=== PATIENT | female | born 1950 | race African-American/Black ===

== ENCOUNTER 2016-04-15 18:22 | Emergency (ER) | payer MEDICAID, MEDICARE ==
[~2016-04-15] VITALS: Ht 154.9 cm; Wt 90.7 kg
[2016-04-15 18:50] VITALS: BP 129/61
[2016-04-15] MEDS ORDERED: PREDNISONE 20 MG TABLET PO ONE (19:15)
[2016-04-15] MEDS ORDERED: DIPHENHYDRAMINE HCL 25 MG CAPSULE PO ONE (19:15)
[2016-04-15] MEDS ORDERED: PRED20TA PO (19:18)
--- NOTE | 2016-04-15 19:19 | PHYS DOC ---
Past Medical History Past Medical History: Diabetes-Type II, Hypertension Past Surgical History: Coronary Bypass Surgery, Hysterectomy Alcohol Use: Occasionally Drug Use: None Adult General Chief Complaint Chief Complaint: INSECT BITE HPI HPI Patient is a 65 year old female presents emergency department stating that she is here from out of town and staying at a friend's house. She states when she woke up in the middle the night she was having some itching and irritation on her right wrist and forearm. She states now she is having itching on the left forearm as well as in the back area. Patient states that she has not taken anything for the irritation. She denies any new clothing. She is sleeping in a new bed linens last in different detergent to what she uses. No one else in the home as any type or rash or discomfort. Review of Systems Review of Systems Constitutional: Denies fever or chills [] Eyes: Denies change in visual acuity, redness, or eye pain [] HENT: Denies nasal congestion or sore throat [] Respiratory: Denies cough or shortness of breath [] Cardiovascular: No additional information not addressed in HPI [] GI: Denies abdominal pain, nausea, vomiting, bloody stools or diarrhea [] : Denies dysuria or hematuria [] Musculoskeletal: Denies back pain or joint pain [] Integument: Rash bilateral arms with itching to the back Neurologic: Denies headache, focal weakness or sensory changes [] Endocrine: Denies polyuria or polydipsia [] Allergies Allergies Allergies Coded Allergies Type Severity Reaction Last Updated Verified No Known Drug Allergies 04/15/16 No Physical Exam Physical Exam Constitutional: Well developed, well nourished, no acute distress, non-toxic appearance. [] HENT: Normocephalic, atraumatic, bilateral external ears normal, oropharynx moist, no oral exudates, nose normal. [] Eyes: PERRLA, EOMI, conjunctiva normal, no discharge. [] Neck: Normal range of motion, no tenderness, supple, no stridor. [] Cardiovascular:Heart rate regular rhythm, no murmur [] Lungs & Thorax: Bilateral breath sounds clear to auscultation [] Skin: Warm, dry, no erythema. Redness and swelling was noted to right wrist area as well as redness and swelling to the left forearm. Patient does have an area on the right cheek that appears to be swollen although does not appear to be red. Back: No tenderness Extremities: No tenderness, no cyanosis, no clubbing, ROM intact, no edema. [] Neurologic: Alert and oriented X 3, normal motor function, normal sensory function, no focal deficits noted. [] Psychologic: Affect normal, judgement normal, mood normal. [] Current Patient Data Vital Signs Vital Signs Date Time Temp Pulse Resp B/P Pulse Ox O2 Delivery O2 Flow Rate FiO2 04/15/16 18:50 98.2 120 16 99 Room Air 98.2 EKG EKG [] Radiology/Procedures Radiology/Procedures [] Course & Med Decision Making Course & Med Decision Making Pertinent Labs and Imaging studies reviewed. (See chart for details) Questionable contact for dermatitis versus allergic reaction, or bites. Patient will be placed on Benadryl and steroids with recommendations to follow-up with a primary care physician next 3-5 days. Also recommended patient to keep the skin clean dry and cool. Since symptoms to return back to emergency department as been provided. Patient agrees with discharge instructions treatment regimens and follow-up recommendations. [] Dragon Disclaimer Dragon Disclaimer This electronic medical record was generated, in whole or in part, using a voice recognition dictation system. Departure Departure Impression: Primary Impression: Contact dermatitis Disposition: HOME, SELF-CARE Condition: STABLE Referrals: NO PCP (PCP) Patient Instructions: Contact Dermatitis, [id number] Additional Instructions: Home to rest Medication as prescribed Benadryl may be purchased over the counter 25 mg every 6 hours. This medication will cause drowsiness do not take if you need to be alert and oriented Drink plenty of fluids Aveeno baths may soothe the skin Keep the skin cool and dry Followup with primary care provider in 3-5 days Return to emergency department as needed for signs and symptoms that become worse. Scripts Prednisone 20 Mg Rjjefn50 Mg PO DAILY #14 TAB Prov:OMAR AJRVIS NP 04/15/16 OMAR JARVIS NP Apr 15, 2016 19:19
[2016-04-15] MEDS ORDERED: TRIA15OI TP (19:25)
== END 2016-04-15 19:24 | disposition home or self-care (01) ==
LOC: ER 18:22
DX: L25.9 Unspecified contact dermatitis, unspecified cause (principal); E11.9 Type 2 diabetes mellitus without complications; I10 Essential (primary) hypertension; Z95.1 Presence of aortocoronary bypass graft
CPT/HCPCS: 99283; J7512; Q0163